=== PATIENT | female | born 1950 ===

== ENCOUNTER 2017-01-27 11:51 | Inpatient (IN) | payer MEDICARE ==
[~2017-01-27] VITALS: Ht 167.6 cm; Wt 50.3 kg
[~2017-01-27 11:51] MED LIST: BAYER CHEWABLE81 MG PO; BUSPAR10 MG PO; DESERYL100 MG PO; HYDROCODONE-APA1 TAB PO; K-TAB10 MEQ PO; LASIX40 MG PO; NAPROSYN500 MG PO; NORVASC10 MG PO; PRAVACHOL40 MG PO; PRILOSEC20 MG PO; VALIUM10 MG PO; ZOLOFT100 MG PO
[2017-01-27] MEDS ORDERED: CILOXAN3.5 GM LEFT EYE (13:33)
[2017-01-27] MEDS ORDERED: OMEPRAZOLE20 M1 PO (13:35)
[2017-01-27] MEDS ORDERED: COMBIVENT RESPIM4 GM INH (13:37)
[2017-01-27] MEDS ORDERED: KEPPRA500 MG PO (13:41)
[2017-01-27] MEDS ORDERED: LISINOPRIL2.5 MG PO (13:41)
[2017-01-27] MEDS ORDERED: VITAMIN B-12500 MC1 PO (13:44)
[2017-01-27] MEDS ORDERED: VALIUM10 MG PO (13:45)
[2017-01-27 14:00] LABS: APPEARANCE HAZY (CLEAR); BILIRUBIN NEGATIVE (NEGATIVE); COLOR STRAW (YELLOW); GLUCOSE NEGATIVE (NEGATIVE); KETONE NEGATIVE (NEGATIVE); LEUKOCYTE ESTERASE NEGATIVE (NEGATIVE); NITRITE NEGATIVE (NEGATIVE); PROTEIN NEGATIVE (NEGATIVE); SPECIFIC GRAVITY 1.005 (1.005-1.020); UROBILINOGEN NORMAL (NORMAL)
[2017-01-27 14:28] VITALS: BP 90/52; BMI 17.9
--- NOTE | 2017-01-27 14:29 | NUR ---
WOUND CARE CONSULT: NOTED HEALING STAGE 2 PRESSURE INJURY TO RIGHT SACRUM MEASURING 2CM X 0.5CM X 0.1CM - WOUND BED IS PINK - WOUND EDGES PINK AND PEELING. NO DRAINAGE OR ODOR NOTED. COVERED WITH MEPILEX LITE DRESSING. WILL CONTINUE TO MONITOR.
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
[2017-01-27 15:32] LABS: BASOPHILS 0.5 % (0.0-2.0); EOSINOPHILS 2.8 % (0-7); HEMATOCRIT 35.4 % (36.0-48.0); HEMOGLOBIN 11.3 g/dL (12-16); IMMATURE GRANULOCYTES 0.2 % (0-5); LYMPHOCYTES 29.4 % (15-50); MCH 32.1 pg (26.0-34.0); MCHC 31.9 g/dL (31.0-37.0); MCV 100.6 fL (80.0-100.0); MEAN PLATELET VOLUME 9.7 fL (7.4-10.4); MONOCYTES 8.9 % (2-11); NEUTROPHILS 58.2 % (40-80); PLATELET COUNT 209 10x3/uL (130-400); RBC 3.52 10x6/uL (4.00-5.40); RDW 13.5 % (11.5-14.5); WBC 6.5 10x3/uL (4.8-10.8)
[2017-01-27 16:06] LABS: HEMOGLOBIN A1C 5.7 % (4.8-6.0)
[2017-01-27 16:43] LABS: ALBUMIN 3.4 g/dL (3.4-5.0); ANION GAP 12.8 mmol/L (8-16); BILIRUBIN - TOTAL 0.27 mg/dL (0.2-1.3); CALCIUM 9.4 mg/dL (8.5-10.1); CARBON DIOXIDE 30.7 mmol/L (21.0-32.0); CHOL - HDL RATIO 3.8 ratio (2.3-4.1); CREATININE - SERUM 1.2 mg/dL (0.6-1.3); LDL-HDL RATIO 1.2 ratio (1.5-3.5); POTASSIUM - SERUM 4.5 mmol/L (3.5-5.1); PROTEIN - SERUM 6.7 g/dL (6.4-8.2); THYROID STIMULATING HORMONE 2.9 uIU/mL (0.36-3.74)
[2017-01-27 19:42] VITALS: BP 124/59
--- NOTE | 2017-01-28 02:42 | NUR ---
B) Recieved patient in the hallway in a wheelchair, alert and oriented anxious and restless, exit seeking, I) administered perscribed medications, redirected as needed, R) refused medicatios several times before asking to take her medications, negitive aditude, isolating, P) Continue plan of care, continue to monitor for safety.
[2017-01-28 08:00] VITALS: BP 121/63
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
[2017-01-28 11:19] VITALS: BP 121/63
[2017-01-28 12:29] VITALS: Ht 167.6 cm; Wt 50.3 kg
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
[2017-01-28 20:00] VITALS: BP 87/58
--- NOTE | 2017-01-28 20:03 | NUR ---
RECEIVED IN DAYROOM. SITTING IN RECLINER WATCHING OTHERS BUT NOT SOCIALIZING WITH PEERS. CALM AND COOPERATIVE WITH CARE AND ASSESSMENTS. NO THOUGHTS OF SELF HARM. CONTNUE TO ENCOURAGE TO EXPRESS NEEDS AND FEELINGS. REMAINS SITTING IN RECLINER QUIETLY. CONTINUE PLAN OF CARE
[2017-01-29 08:20] LABS: FOLATE (FOLIC ACID) - SERUM 18.6 ng/mL (>3.0); RAPID PLASMA REAGIN Non Reactive (Non Reactive)
[2017-01-29 09:17] LABS: VITAMIN D 25 HYDROXY 33.5 ng/mL (30.0-100.0)
[2017-01-29 09:50] VITALS: BP 109/69
--- NOTE | 2017-01-29 12:49 | PN ---
PATIENT:KEENAN STEWART MEDICAL RECORD: [id number] LOCATION:[facility] ADMISSION DATE: 01/27/17 PROGRESS NOTE DATE OF SERVICE: 01/28/2017 SUBJECTIVE: The patient's case was discussed with staff. She has no new complaint. OBJECTIVE: The patient is in good behavioral control and denies that she would seek to harm herself or others. She has clear and significant evidence of dementia. She will be maintained on current medicines, which I have reviewed. I do see a number of changes that possibly need to be made; however, there is more information that needs to be collected and it is interesting how much better she looks today without any changes having been made. TRANSINT:[id number] Voice Confirmation ID: [id number] DOCUMENT ID: [id number] DENA MORALES MD at 1249 CC: [id number] DICTATION DATE: 01/28/17 1456 EDUCATION SPECIALIST: 01/28/17 1845 ADM IN [facility] [address] [place] [address]
--- NOTE | 2017-01-29 16:13 | NUR ---
B) Alert, pleasant mood at most times, however sometimes has brief tearful episodes, non-combative. I) Admin medications, provide group therapy as directed. R) Med. compliant, cooperative with group activities. P) Cont plan of care including medications and group therapy.
[2017-01-29 19:29] VITALS: BP 127/57
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
--- NOTE | 2017-01-30 01:25 | NUR ---
PATIENT IN HALLWAY, PAIN LEVEL 5/10 BUT IS ANXIOUS DUE TO AGITATED PEERS. PATIENT REQUESTED MEDICATION FOR ANXIETY. SHE WAS GIVEN PRN ATIVAN 0.5 P.O. CONTINE TO MONITOR, CONTINUE PLAN OF CARE
[2017-01-30 08:30] VITALS: BP 99/48
--- NOTE | 2017-01-30 10:24 | NUR ---
Nutrition Follow Up: Chart reviewed. Pt is eating 78% meal avg on a regular mechanical soft diet. Pt is receiving Ensure with meals. Wt stable. +BM 01/28/17. Meds noted including Lasix. Labs noted. Pt with good po intake at this time. Rec continue diet per [employer] OPER[employer] TOOL recs. Will continue to send Ensure with meals. RD following.
--- NOTE | 2017-01-30 15:28 | PN ---
PATIENT:KEENAN STEWART MEDICAL RECORD: [id number] LOCATION:[facility] ADMISSION DATE: 01/27/17 PROGRESS NOTE DATE OF SERVICE: 01/29/2017 SUBJECTIVE: The patient's case was discussed with staff. She has no new complaint. OBJECTIVE: The patient is in good behavioral control with limited insight about her condition. She is severely impaired cognitively and hopefully Dr. Albina Duarte can test her tomorrow. I have reviewed her medicines and will maintain them. TRANSINT:[id number] Voice Confirmation ID: [id number] DOCUMENT ID: [id number] DENA MORALES MD at 1528 CC: [id number] DICTATION DATE: 01/29/17 1256 DELINQUENCY COUNSELOR: 01/29/17 2154 ADM IN [place] [id number] [place] [id number]
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
[2017-01-30 21:00] VITALS: BP 106/45
--- NOTE | 2017-01-31 04:19 | NUR ---
PATIENT IN DAYROOM QUIETLY SITTING IN CHAIR. ALERT AND ORIENTED X 4. PAIN LEVEL AT 8, TYLENOL GIVEN. CONTINUE TO MONITOR, CONTINUE PLAN OF CARE.
[2017-01-31 08:30] VITALS: BP 111/61
--- NOTE | 2017-01-31 15:39 | NUR ---
B.) Alert and oriented times four, pleasant and social with others. I.) Administer medications and monitor compliance. Monitor for any sucidial ideations and contract for safety. Encourage group participation. Maintain safety. R.) [place] with staff and peers, smihiral. Contracted for safety with no suicidal ideations. Patient is hopeful and excited about returning home instead of a fpc. Talks about all the fun things she will get to do and how sitting out on her porch is very peaceful to hear. Ambulates safely with walker on unit. Safety maintained. P.) Continue with plan of care.
--- NOTE | 2017-01-31 19:05 | NUR ---
ascencion time four to left side of head, all four ascencion removed without difficulty. Incision is approximate with no signs of drainage or infection. Patient tolerated with no complaints.
[2017-01-31 19:38] VITALS: BP 132/66
--- NOTE | 2017-01-31 21:10 | NUR ---
B) RECEIVED IN DAYROOM SITTING IN RECLINER, ALERT AND ORIENTED X 4. CALM AND COOPERATIVE WITH ASSESSMENT AND CARE. I) ADMINISTER PRESCRIBED MEDS. VSS. REDIRECT AND RORIENT NEEDED. MONITOR FOR ANY SUICIDAL IDEATIONS. SHE CONTRACTS FOR SAFETY. R) MEDICATION COMPLIANT. NO AGGRESSION NOTED. SAFETY MAINTAINED AND NO SUICIDAL IDEATIONS ASSESSED. P) CONTINUE CURRENT POC.
[2017-02-01 10:36] VITALS: BP 118/61
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
[2017-02-01 19:30] VITALS: BP 133/65
--- NOTE | 2017-02-01 21:10 | NUR ---
B) RECEIVED IN DASYROOM SITTING IN RECLINER. AWAKE AND ALERT X 4. CALM AND COOPERATIVE WITH ASSESSMENT AND CARE. AMBULATES WITH WALKER. SOCIALIZES WITH PEERS AND STAFF. I) ADMINISTER PRESCRIBED MEDS. VSS. R) MEDICATION COMPLIANT. DENIES SUICIDAL IDEATION. P) CONTINUE CURRENT PLAN OF CARE.
[2017-02-02 07:00] VITALS: BP 131/62
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
[2017-02-02 19:34] VITALS: BP 130/81
--- NOTE | 2017-02-03 00:58 | NUR ---
B) Recieved sitting in the day room alert and oriented X 3, calm and cooperative, social with staff, I) Administered perscribed medications, R) Medication compliant, pleasant and friendly to staff, P0 Continue plan of care.
[2017-02-03 09:10] VITALS: BP 121/52
--- NOTE | 2017-02-03 10:00 | NUR ---
B.) Alert and oriented time four. Calm and pleasant. I.) Administer medications and monitor compliance. Encourage to express feelings. Encourage group participation. Monitor for any suicidal ideations. Monitor safety. R.) Compliant with medications. Smiles and is social with others. Expresses hope and joyful about returning home, has postive outlook. Contracted for safety. Safety maintained. P.) Continue with plan for discharge today.
--- NOTE | 2017-02-03 10:54 | PN ---
PATIENT:KEENAN STEWART MEDICAL RECORD: [id number] LOCATION:[facility] ADMISSION DATE: 01/27/17 PROGRESS NOTE DATE OF SERVICE: 01/31/2017 SUBJECTIVE: Staff reports the patient is overall much better. She is stronger with physical therapy. She continues to have some dysphoria. She did undergo testing with Dr. Duarte today, results are pending. On exam, mood is euthymic. Affect is bland. Speech is terse, but otherwise fairly fluent. Content of thought is negative for overt psychosis or suicidality. Sensorium is unchanged. ASSESSMENT: No change in diagnoses. PLAN: 1. We will discontinue Zoloft and substitute Cymbalta 60 mg daily. 2. Continue other current medications. 3. Continue supportive therapy. TRANSINT:[id number] Voice Confirmation ID: [id number] DOCUMENT ID: [id number] JONA DODD III, MD at 1054 CC: [id number] DICTATION DATE: 01/31/17 1233 GEAR TECHNICIAN: 01/31/17 2104 ADM IN [place] [id number] [place] [address]
[2017-02-03] MEDS ORDERED: ARICEPT5 MG PO (11:27)
[2017-02-03] MEDS ORDERED: ACETAMINOPHEN500 M1 PO (11:29)
[2017-02-03] MEDS ORDERED: ASPIRIN81 MG PO (11:29)
[2017-02-03] MEDS ORDERED: PROTONIX40 MG PO (11:31)
[2017-02-03] MEDS ORDERED: CYMBALTA30 MG PO (11:31)
--- NOTE | 2017-02-03 12:08 | NUR ---
Discharge medication scripts called to [facility] in [facility].
--- NOTE | 2017-02-03 12:40 | NUR ---
Patient spouse here to pick her up, patient and spouse verbalized understanding of discharge instructions. All personal belongings released to patient. Discharged with no incident.
--- NOTE | 2017-02-04 11:40 | PN ---
PATIENT:KEENAN STEWART MEDICAL RECORD: [id number] LOCATION:[facility] ADMISSION DATE: 01/27/17 PROGRESS NOTE DATE OF SERVICE: 02/03/2017 SUBJECTIVE: No new complaint. OBJECTIVE: The patient has done well over the weekend. No further suicidal statements or ideation. She is tolerating medications well. Arrangements have been made for discharge back to the care home. On exam, mood is euthymic. Affect is bland. Speech is somewhat terse. Content of thought shows no evidence of suicidality. Sensorium is unchanged. ASSESSMENT: No change in diagnosis. PLAN: 1. Continue current treatment plan. 2. Anticipate discharge later today. TRANSINT:[id number] Voice Confirmation ID: [id number] DOCUMENT ID: [id number] JONA DODD III, MD at 1140 CC: [id number] DICTATION DATE: 02/03/17 1142 CASE INVESTIGATOR: 02/03/17 1449 DIS IN 02/03/17 [place] [id number] [place] [address]
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
== END 2017-02-03 12:40 | disposition home or self-care (01) | DRG 885 ==
LOC: D.PSYCH 11:51
PROVIDERS: ADMIT Psychiatry & Neurology Psychiatry
DX: F33.9 Major depressive disorder, recurrent, unspecified (principal); R45.851 Suicidal ideations; S06.5X0D Traumatic subdural hemorrhage without loss of consciousness, subsequent encounter; F02.80 Dementia in other diseases classified elsewhere, unspecified severity, without behavioral disturbance, psychotic disturbance, mood disturbance, and anxiety; W19.XXXD Unspecified fall, subsequent encounter; I10 Essential (primary) hypertension; J44.9 Chronic obstructive pulmonary disease, unspecified; E78.5 Hyperlipidemia, unspecified; M19.90 Unspecified osteoarthritis, unspecified site; Z72.0 Tobacco use